=== PATIENT | male | born 1965 | race African-American/Black ===

== ENCOUNTER 2021-10-28 09:57 | Inpatient (IN) ==
[2021-10-22 11:44] LABS: Basophils # 0.1 10*3/uL (0.0-0.2); Basophils % 0.7 % (0.0-0.8); Eosinophils # 0.2 10*3/uL (0.0-0.87); Eosinophils % 2.3 % (0.00-10.9); Hemoglobin 14.1 GM/DL (14.0-18.0); Immature Granulocytes % 0.4 %; Immature Granulocytes Absolute 0.04 #; Lymphocytes % 20.5 % (21.2-54.2); Mean Corpuscular HGB Conc 30.7 GM/DL (32-36); Mean Corpuscular Volume 82.1 FL (87-102); Mean Platelet Volume 10.5 FL (9.6-12.0); Monocytes # 0.7 10*3/uL (0.11-0.8); Monocytes % 7.4 % (1.7-12.7); Neutrophils % 68.7 % (38.7-73.9); Platelet Count 271 T/CUMM (130-400); Red Cell Distribution Width 14.5 % (9.3-17.3); White Blood Count 9.9 T/CUMM (4-12)
[2021-10-22 12:01] LABS: Alanine Aminotransferase 54 U/L (16-61); Albumin 3.5 G/DL (3.4-5.0); Alkaline Phosphatase 72 U/L (45-117); Aspartate Amino Transferase 23 U/L (0-37); Bilirubin,Total < 0.39 MG/DL (0.20-1.00); Blood Urea Nitrogen 16 MG/DL (7-18); Calcium 9.6 MG/DL (8.5-10.1); Carbon Dioxide 28 MMOL/L (21-32); Chloride 108 MMOL/L (98-107); Glucose 113 MG/DL (74-106); Osmolality,Calculated 282.3 MOS/KG (273-304); Potassium 4.3 MMOL/L (3.5-5.1); Sodium 141 MMOL/L (136-145); Total Protein 7.4 G/DL (6.4-8.2)
[~2021-10-28 09:57] MED LIST: MIDAZOLAM 2 MG/2 ML VIAL ONE; cefTRIAXone 1,000 MG in SODIUM CHLORIDE 0.9% 100 ML IV ONE; fentaNYL 100 MCG/2 ML VIAL ONE
[2021-10-28] MEDS ORDERED: GABAPENTIN 400 MG CAPSULE PO ONE (10:46)
[2021-10-28] MEDS ORDERED: FAMOTIDINE 20 MG TABLET PO ONE (10:46)
[2021-10-28] MEDS ORDERED: ACETAMINOPHEN 500 MG TABLET PO ONE (10:46)
[2021-10-28] MEDS ORDERED: ALVIMOPAN 12 MG CAPSULE PO ONE (10:58)
[2021-10-28] MEDS ORDERED: LACTATED RINGERS 1,000 ML IV SCH (11:00)
[2021-10-28] MEDS ORDERED: buprenorphine HCL 0.3 MG/ML VIAL ONE (11:41)
[2021-10-28] MEDS ORDERED: ROPIVACAINE 0.5% 30 ML VIAL ONE (11:43)
[2021-10-28] MEDS ORDERED: PHENYLEPHRINE 1 MG/10 ML SYRINGE IV ONE ×2 (13:18→14:04)
[2021-10-28] MEDS ORDERED: LIDOCAINE 2% 5 ML VIAL ONE (14:04)
[2021-10-28] MEDS ORDERED: propofoL 200 MG/20 ML VIAL IV ONE (14:04)
[2021-10-28] MEDS ORDERED: ROCURONIUM 50 MG/5 ML VIAL IV ONE ×2 (14:04→14:22)
[2021-10-28] MEDS ORDERED: ONDANSETRON 4 MG/2 ML VIAL ONE ×2 (14:04→15:35)
[2021-10-28] MEDS ORDERED: SUCCINYLCHOLINE 200 MG/10 ML VIAL ONE (14:04)
[2021-10-28] MEDS ORDERED: ePHEDrine 50 MG/ML VIAL ONE (15:30)
[2021-10-28] MEDS ORDERED: LACTATED RINGERS 1,000 ML IV ONE (15:32)
[2021-10-28] MEDS ORDERED: DESFLURANE 1 UNIT/15 MINUTE INH ONE ×2 (15:32→17:06)
[2021-10-28] MEDS ORDERED: ACETAMINOPHEN INJ 1,000 MG/100 ML VIAL IV ONE (15:33)
[2021-10-28] MEDS ORDERED: DEXAMETHASONE 4 MG/1 ML VIAL ONE (15:36)
[2021-10-28] MEDS ORDERED: GLYCOPYRROLATE 0.4 MG/2 ML VIAL ONE (16:32)
[2021-10-28] MEDS ORDERED: NEOSTIGMINE 10 MG/10 ML VIAL ONE (16:36)
[2021-10-28] MEDS ORDERED: diphenhydrAMINE 50 MG/1 ML VIAL IV PRN (16:41)
[2021-10-28] MEDS ORDERED: HYDROmorphone 1 MG/1 ML SYRINGE IV PRN (16:41)
[2021-10-28] MEDS ORDERED: PROMETHAZINE 25 MG/1 ML VIAL IM PRN (16:41)
[2021-10-28] MEDS ORDERED: ONDANSETRON 4 MG/2 ML VIAL IV PRN (16:41)
[2021-10-28] MEDS ORDERED: SIMETHICONE CHEW 125 MG TABLET PO PRN (16:41)
[2021-10-28 17:12] LABS: Basophils # 0.1 10*3/uL (0.0-0.2); Basophils % 0.3 % (0.0-0.8); Eosinophils # 0.1 10*3/uL (0.0-0.87); Eosinophils % 0.3 % (0.00-10.9); Hemoglobin 13.2 GM/DL (14.0-18.0); Immature Granulocytes % 0.5 %; Lymphocytes # 2.7 10*3/uL (1.4-4.0); Lymphocytes % 14.4 % (21.2-54.2); Mean Corpuscular HGB Conc 31.4 GM/DL (32-36); Mean Corpuscular Volume 81.6 FL (87-102); Mean Platelet Volume 9.2 FL (9.6-12.0); Monocytes # 1.2 10*3/uL (0.11-0.8); Monocytes % 6.5 % (1.7-12.7); Mucus,Urine Occasional /LPF (Occasional); Platelet Count 238 T/CUMM (130-400); RBC,Urine <1 /HPF (0-4); Red Blood Count 5.15 MC/CUMM (3.8-5.5); Red Cell Distribution Width 14.7 % (9.3-17.3); White Blood Count 18.7 T/CUMM (4-12)
[2021-10-28 17:13] LABS: Glucose,Urine (UA) Negative (Negative); Ketones,Urine Negative (Negative); Nitrite,Urine Negative (Negative); Protein,Urine Negative (Negative); Urine Appearance Clear (Clear); Urine Color Yellow (Yellow); Urine Specific Gravity 1.025 (1.001-1.035)
[2021-10-28 17:14] LABS: Bilirubin,Urine Negative (Negative); Blood, Urine Negative (Negative); Urine Urobilinogen 0.2 eU/dL (<2.0)
[2021-10-28] MEDS: HYDROmorphone 1 MG/1 ML SYRINGE IV PRN ×2 (17:24→17:40)
[2021-10-28 17:29] LABS: Calcium 8.8 MG/DL (8.5-10.1); Osmolality,Calculated 280.4 MOS/KG (273-304); Potassium 4.1 MMOL/L (3.5-5.1)
[2021-10-28] MEDS ORDERED: INFLUENZA VIRUS VACCINE 0.5 ML SYRINGE IM ONE (18:41)
[2021-10-28] MEDS: SODIUM CHLORIDE 0.9% 1,000 ML IV SCH (19:03)
[2021-10-28] MEDS: DOCUSATE SODIUM 100 MG CAPSULE PO SCH (21:18)
[2021-10-28] MEDS: ALVIMOPAN 12 MG CAPSULE PO SCH (21:18)
[2021-10-28] MEDS: OXYBUTYNIN 5 MG TABLET PO SCH (21:18)
[2021-10-28] MEDS: oxyCODONE/ACETAMINOPHEN 5-325 MG TABLET PO PRN (21:20)
[2021-10-29] MEDS: SODIUM CHLORIDE 0.9% 1,000 ML IV SCH ×3 (03:37→17:28)
[2021-10-29] MEDS: ACETAMINOPHEN 325 MG TABLET PO SCH ×4 (03:53→17:44)
[2021-10-29 05:11] LABS: Basophils % 0.2 % (0.0-0.8); Eosinophils % 0.2 % (0.00-10.9); Hemoglobin 12.8 GM/DL (14.0-18.0); Immature Granulocytes % 0.3 %; Immature Granulocytes Absolute 0.04 #; Lymphocytes # 1.3 10*3/uL (1.4-4.0); Lymphocytes % 10.4 % (21.2-54.2); Mean Corpuscular HGB Conc 31.2 GM/DL (32-36); Mean Corpuscular Volume 81.5 FL (87-102); Mean Platelet Volume 9.9 FL (9.6-12.0); Monocytes # 0.7 10*3/uL (0.11-0.8); Monocytes % 5.4 % (1.7-12.7); Neutrophils % 83.5 % (38.7-73.9); Platelet Count 249 T/CUMM (130-400); Red Blood Count 5.03 MC/CUMM (3.8-5.5); Red Cell Distribution Width 14.7 % (9.3-17.3); White Blood Count 12.2 T/CUMM (4-12)
[2021-10-29 05:37] LABS: Calcium 9.1 MG/DL (8.5-10.1); Osmolality,Calculated 279.5 MOS/KG (273-304); Potassium 4.2 MMOL/L (3.5-5.1)
[2021-10-29] MEDS: oxyCODONE/ACETAMINOPHEN 5-325 MG TABLET PO PRN (06:08)
[2021-10-29] MEDS: OXYBUTYNIN 5 MG TABLET PO SCH ×3 (09:03→20:16)
[2021-10-29] MEDS: ALVIMOPAN 12 MG CAPSULE PO SCH ×2 (09:03→20:15)
[2021-10-29] MEDS: DOCUSATE SODIUM 100 MG CAPSULE PO SCH ×2 (09:03→20:16)
[2021-10-29] MEDS: cefTRIAXone 1,000 MG in SODIUM CHLORIDE 0.9% 100 ML IV SCH (13:23)
[2021-10-30] MEDS: ACETAMINOPHEN 325 MG TABLET PO SCH ×5 (00:07→23:34)
[2021-10-30 07:32] LABS: Basophils % 0.4 % (0.0-0.8); Eosinophils # 0.2 10*3/uL (0.0-0.87); Eosinophils % 2.2 % (0.00-10.9); Hematocrit 41.1 VOL% (42.0-52.0); Hemoglobin 12.8 GM/DL (14.0-18.0); Immature Granulocytes % 0.4 %; Immature Granulocytes Absolute 0.04 #; Lymphocytes # 1.5 10*3/uL (1.4-4.0); Lymphocytes % 15.4 % (21.2-54.2); Mean Corpuscular HGB Conc 31.1 GM/DL (32-36); Mean Corpuscular Volume 81.5 FL (87-102); Mean Platelet Volume 9.8 FL (9.6-12.0); Monocytes # 0.7 10*3/uL (0.11-0.8); Monocytes % 6.8 % (1.7-12.7); Neutrophils % 74.8 % (38.7-73.9); Platelet Count 250 T/CUMM (130-400); Red Blood Count 5.04 MC/CUMM (3.8-5.5); Red Cell Distribution Width 14.9 % (9.3-17.3); White Blood Count 9.8 T/CUMM (4-12)
[2021-10-30 07:52] LABS: Calcium 9.1 MG/DL (8.5-10.1); Osmolality,Calculated 282.1 MOS/KG (273-304); Potassium 3.8 MMOL/L (3.5-5.1)
[2021-10-30] MEDS: ALVIMOPAN 12 MG CAPSULE PO SCH ×2 (09:30→20:37)
[2021-10-30] MEDS: DOCUSATE SODIUM 100 MG CAPSULE PO SCH ×2 (09:30→20:37)
[2021-10-30] MEDS: OXYBUTYNIN 5 MG TABLET PO SCH ×3 (09:31→20:37)
[2021-10-30] MEDS: cefTRIAXone 1,000 MG in SODIUM CHLORIDE 0.9% 100 ML IV SCH (13:58)
[2021-10-31] MEDS: ACETAMINOPHEN 325 MG TABLET PO SCH ×2 (05:50→12:07)
[2021-10-31 05:57] LABS: Basophils # 0.1 10*3/uL (0.0-0.2); Basophils % 0.6 % (0.0-0.8); Eosinophils # 0.3 10*3/uL (0.0-0.87); Eosinophils % 3.4 % (0.00-10.9); Hematocrit 41.6 VOL% (42.0-52.0); Hemoglobin 12.9 GM/DL (14.0-18.0); Immature Granulocytes % 0.2 %; Immature Granulocytes Absolute 0.02 #; Lymphocytes # 1.6 10*3/uL (1.4-4.0); Lymphocytes % 19.4 % (21.2-54.2); Mean Corpuscular Volume 82.1 FL (87-102); Mean Platelet Volume 9.5 FL (9.6-12.0); Monocytes # 0.6 10*3/uL (0.11-0.8); Monocytes % 7.4 % (1.7-12.7); Platelet Count 254 T/CUMM (130-400); Red Blood Count 5.07 MC/CUMM (3.8-5.5); Red Cell Distribution Width 14.7 % (9.3-17.3); White Blood Count 8.5 T/CUMM (4-12)
[2021-10-31] MEDS: OXYBUTYNIN 5 MG TABLET PO SCH (09:00)
[2021-10-31] MEDS: ALVIMOPAN 12 MG CAPSULE PO SCH (09:00)
[2021-10-31] MEDS: DOCUSATE SODIUM 100 MG CAPSULE PO SCH (09:00)
[2021-10-31 11:53] VITALS: BP 111/64
[2021-10-31] MEDS: cefTRIAXone 1,000 MG in SODIUM CHLORIDE 0.9% 100 ML IV SCH (12:07)
== END 2021-10-31 14:30 | disposition home or self-care (01) | DRG 707 ==
LOC: N.SDSINP 09:57 → N.3E 16:59
PROVIDERS: ADMIT Surgery; ATTEND Surgery